=== PATIENT | male | born 1995 | race Caucasian/White ===

== ENCOUNTER 2017-01-20 20:01 | Emergency (ER) | payer OTHER ==
[2017-01-20 20:10] VITALS: BP 135/73
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
[2017-01-20] MEDS ORDERED: IBUPROFEN 600 MG TABLET PO STA (20:38)
[2017-01-20] MEDS ORDERED: CYCLOBENZAPRINE 10 MG TABLET PO STA (20:38)
[2017-01-20] MEDS ORDERED: CYCLOBENZAPRINE 10 MG TABLET PO ONE (20:48)
[2017-01-20] MEDS ORDERED: IBUPROFEN 600 MG TABLET PO ONE (20:49)
== END 2017-01-20 20:49 | disposition home or self-care (01) ==
LOC: ED 20:01
DX: S39.012A Strain of muscle, fascia and tendon of lower back, initial encounter (principal); V49.40XA Driver injured in collision with unspecified motor vehicles in traffic accident, initial encounter
CPT/HCPCS: 99283; A9270